=== PATIENT | female | born 1985 | race African-American/Black ===

== ENCOUNTER 2018-06-27 22:49 | Emergency (ER) | payer OTHER ==
[2018-06-27] MEDS ORDERED: KETOROLAC 30 MG/ML INJ ONE (23:24)
--- NOTE | 2018-06-28 00:31 | ER ---
Nurse's Notes [facility] Name: Lilli Whitaker Age: 33 yrs Sex: Female : 1985 Arrival Date: 06/27/2018 Time: 22:53 Bed 25 Private MD: Diagnosis: Radiculopathy, lumbar region;Constipation;Myalgia Presentation: 06/27 23:28 Presenting complaint: Patient states: "I WAS JUST WALKING AROUND THEN SUDDENLY I FELT rv THE PAIN FROM MY LOWER BACK DOWN TO MY RIGHT LEG. IT FELT COLD. NOW THE PAIN STAYS IN THE GROIN AREA.". Transition of care: patient was not received from another setting of care. Onset of symptoms was June 27, 2018 at 19:00. Risk Assessment: Do you want to hurt yourself or someone else? Patient reports no desire to harm self or others. Initial Sepsis Screen: Does the patient meet any 2 criteria? No. Patient's initial sepsis screen is negative. Does the patient have a suspected source of infection? No. Patient's initial sepsis screen is negative. Care prior to arrival: None. 23:28 Method Of Arrival: Ambulatory rv 23:28 Acuity: ALMITA 3 rv BELL SPINNER SOUSAPHONES: 23:39 LMP 06/27/2018 rv Historical: - Allergies: 23:39 Latex, Natural Rubber; rv 23:39 Sulfa (Sulfonamide Antibiotics); rv - Home Meds: 23:39 None [Active]; rv - PMHx: 23:39 ADD/ADHD; rv - PSHx: 23:39 Knee surgery; rv - Immunization history:: Adult Immunizations up to date. - Social history:: Smoking status: Patient/guardian denies using tobacco, never smoked. - Ebola Screening: : Patient negative for fever greater than or equal to 101.5 degrees Fahrenheit, and additional compatible Ebola Virus Disease symptoms Patient denies exposure to infectious person Patient denies travel to an Ebola-affected area in the 21 days before illness onset. Screenin:38 Abuse screen: Denies threats or abuse. Denies injuries from another. Nutritional rv screening: No deficits noted. Tuberculosis screening: No symptoms or risk factors identified. Fall Risk None identified. Assessment: 23:37 General: Appears in no apparent distress. uncomfortable, Behavior is calm, cooperative. rv Pain: Complains of pain in right leg, groin area. Neuro: Level of Consciousness is awake, alert, obeys commands, Oriented to person, place, time, situation. Cardiovascular: Capillary refill < 3 seconds. Respiratory: Airway is patent. GI: No signs and/or symptoms were reported involving the gastrointestinal system. : No signs and/or symptoms were reported regarding the genitourinary system. EENT: No signs and/or symptoms were reported regarding the EENT system. Derm: Skin is intact. Musculoskeletal: No signs and/or symptoms reported regarding the musculoskeletal system. Vital Signs: 23:08 BP 141 / 104; Pulse 82; Resp 17 S; Pulse Ox 100% on R/A; rv 02 00:40 BP 138 / 99; Pulse 79; Resp 18; Pulse Ox 99% on R/A; rv ED Course: 06/27 22:53 Patient arrived in ED. es 23:05 Alee Cortes FNP-C is PHCP. snw 23:05 Dl Blanco MD is Attending Physician. snw 23:29 Triage completed. rv 23:38 Patient has correct armband on for positive identification. Bed in low position. Call rv light in reach. Side rails up X 1. Adult w/ patient. Pulse ox on. NIBP on. 23:40 Patient placed in an exam room, on a stretcher, on pulse oximetry, Patient notified of rv wait time. 23:43 Patient moved to radiology via wheelchair. kw 23:43 X-ray completed. Patient tolerated procedure well. kw 23:43 Lumbar Spine (3 Views) XRAY In Process Unspecified. EDMS 06/28 00:01 Patient moved back from radiology. kw 00:22 US Extremity Venous Unilateral Ltd In Process Unspecified. EDMS 00:40 No provider procedures requiring assistance completed. Patient did not have IV access rv during this emergency room visit. Administered Medications: 06/27 23:17 Drug: TORadol 60 mg Route: IM; Site: right deltoid; rv 06/28 00:41 Follow up: Response: Pain is decreased rv Outcome: 00:30 Discharge ordered by . snw 00:41 Discharged to home ambulatory. rv 00:41 Condition: good 00:41 Discharge instructions given to patient, Instructed on discharge instructions, follow up and referral plans. medication usage, Demonstrated understanding of instructions, follow-up care, medications, Prescriptions given X 3. 00:41 Patient left the ED. rv Signatures: Dispatcher [employer] Alee Topete, COPPER PLATE PRINTER-C COPPER PLATE PRINTER-Csnw Teresa Reno Kimberlee kw Vicente, Ronaldo, RN RN rv
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
--- NOTE | 2018-06-28 07:17 | RAD REPORT ---
EXAM DESCRIPTION: US - Extremity Venous Uni Ltd - 06/28/2018 12:14 am CLINICAL HISTORY: Right leg pain and swelling. Preliminary findings provided at the time of the study. COMPARISON: None. TECHNIQUE: Real-time sonographic evaluation of the right lower extremity deep venous systems was per formed. FINDINGS: Normal compressibility, flow augmentation, phasic flow and spontaneous flow are identified in the right lower extremity common femoral, superficial femoral, popliteal and posterior tibial vei ns. No intraluminal filling defects seen. IMPRESSION: No DVT in the right lower extremity.
--- NOTE | 2018-06-28 08:24 | RAD REPORT ---
EXAM DESCRIPTION: RAD - Lumbar Spine 3 Views - 06/27/2018 11:51 pm CLINICAL HISTORY: Acute onset back pain and radiculopathy COMPARISON: None. FINDINGS: A three-view lumbar spine examination was performed. Lumbar bodies are normal in height an d alignment. No fracture or acute bony process seen. No disc space narrowing. No other significant fi ndings. No pars defects identified. IMPRESSION: Negative Lumbar Spine examination. Concerns for disc herniation, central canal abnormality or occult bone process can be addressed with MR imaging.
== END 2018-06-28 00:41 | disposition home or self-care (01) ==
LOC: ER 22:49
DX: M54.16 Radiculopathy, lumbar region (principal); K59.00 Constipation, unspecified; Z91.040 Latex allergy status; Z91.048 Other nonmedicinal substance allergy status
CPT/HCPCS: 72100; 93971; 96372; 99284

== ENCOUNTER 2019-05-05 08:56 | Day surgery (SDC) | payer OTHER ==
--- OUTSIDE RECORDS SUMMARY | 2019-05-05 09:04 | XMS REPORT ---
:1985 Author Organization [employer] Care Team Providers Name Role Phone Christelle Rossi Provider Role Unavailable Allergies, Adverse Reactions, Alerts Substance Reaction Event Type Sulfa hives Drug Allergy Problems Problem Type Condition Code Onset Dates Condition Status Assessment Non-intractable vomiting with R11.2 Active nausea, unspecified vomiting type Problem Status post fall Z91.81 Active Assessment Prolonged menstrual cycle N92.1 Active Assessment Nexplanon in place Z97.5 Active Assessment Ventral hernia with obstruction and K43.6 Active without gangrene Assessment Pain of upper abdomen R10.10 Active Problem Pain of upper abdomen R10.10 Active Problem Prolonged menstrual cycle N92.1 Active Problem Nexplanon in place Z97.5 Active Problem Seasonal allergies J30.2 Active Problem Acute right-sided low back pain M54.5 Active without sciatica Problem Non-intractable vomiting with R11.2 Active nausea, unspecified vomiting type Problem Ventral hernia with obstruction and K43.6 Active without gangrene Medications Medication Code Code Instructions Start End Status Dosage System Date Date Ondansetron HCl [facility] [id number] 4 MG Orally Feb 28, Active 1 tablet Every 6-8 hours 2019 as needed for nausea/vo miting Results Name Result Date Reference Range Unit Abnormality Flag TEST URINE ----RESULTS Negative [id number] Summary Purpose [employer] Submission
[2019-05-05] MEDS ORDERED: propofoL 200 MG/20 ML VIAL IV ONE (09:07)
[2019-05-05] MEDS ORDERED: FENTANYL CITR 100 MCG/2 ML ONE (09:08)
[2019-05-05] MEDS ORDERED: LIDOCAINE 2% MPF 5 ML VIAL ONE (09:08)
[2019-05-05] MEDS ORDERED: ROCURONIUM 50 MG/5 ML VIAL IV ONE (09:08)
[2019-05-05] MEDS ORDERED: MIDAZOLAM HCL 2 MG/2 ML INJ ONE (09:08)
[2019-05-05 09:10] LABS: Absolute Lymphocytes (CBC) 1.3 K/uL (0.7-4.9); Basophils % 0.9 % (0-1.3); Hematocrit 39.2 % (36.0-45.0); MPV 9.7 fL (7.6-11.3); RBC Red Blood Cell Count 5.84 M/uL (3.86-4.86)
[2019-05-05] MEDS ORDERED: Ringers Lactate 1,000 ML IV ONE (09:22)
[2019-05-05] MEDS ORDERED: CEFAZOLIN/SWI 1gm 1 GM/10 ML SYR ONE (09:22)
[2019-05-05 09:37] LABS: Blood Morphology Comment NOT SEEN (NOT SEEN); Platelet Estimate ADEQ
[2019-05-05] MEDS ORDERED: NEOSTIGMINE 1 MG/ML -10 ML VIAL ONE (10:47)
[2019-05-05] MEDS ORDERED: GLYCOPYRROLATE 0.2 MG/ML SYR ONE ×3 (10:47→10:50)
[2019-05-05] MEDS ORDERED: HYDROMORPHONE HCL 1 MG/ML INJ ONE (11:11)
[2019-05-05] MEDS ORDERED: ONDANSETRON 4 MG/2 ML VIAL ONE (11:11)
[2019-05-05] MEDS ORDERED: HYDROCODONE/APAP 7.5/325 MG TAB ONE (12:24)
[2019-05-05 13:20] VITALS: BP 105/73; TEMP 97.5; O2SAT 98
--- NOTE | 2019-05-05 22:08 | OP ---
Date of Procedure: 05/05/2019 Surgeon: Jaspreet Paredes MD Preoperative Diagnosis: Ventral hernia. Postoperative Diagnosis: Ventral hernia with adhesions. Procedure Performed: Laparoscopic repair of ventral hernia and lysis of adhesions. Estimated Blood Loss: Minimal. Specimen: Hernia sac and contents. Findings: As above. Anesthesia: General. Complications: None. Disposition: Patient tolerated the procedure in stable condition, taken to Recovery in good general condition. Procedure In Detail: Patient was brought to the OR and placed in supine position. General anesthesi a was begun. The patient was prepped and draped in usual sterile fashion. Marcaine 0.5% was infiltr ated locally. A 15-blade was used to make a 1 cm left upper quadrant incision. Subcutaneous tissue divided. Fascia was identified and divided. A #1 Vicryl stay suture was placed. Peritoneal cavity was entered with sharp and blunt dissection. 12 mm trocar was placed into the peritoneal cavity unde r direct vision. Pneumoperitoneum was established. Then, a 5 mm trocar was placed in the left lower quadrant. Laparoscopy revealed some adhesions in the left lower quadrant and right upper quadrant _ sharp dissection, bleeding controlled with cautery. The patient had a ventral hernia, smal l in nature. 3 cm incision was made over the hernia, subcutaneous tissue divided. Hernia sac and co ntents identified, excised, sent to Pathology as specimen. Approximately, 1.5 to 2 cm defect remaine d in the fascia. Small Ventralex mesh placed and secured with a [id number] suture of #1 PDS and closed the fascial defect as well as to secure the mesh to the peritoneal surface. Then, laparoscop y reperformed and tacker was used to tack the mesh to the peritoneal surface for complete coverage ar ound the hernia defect. No evidence of bleeding or bowel injury appreciated. Subsequently, all troc ars were removed under direct vision. Stay sutures were tied to each other to reapproximate the fasc ial defect. Subcutaneous wounds were irrigated. Bleeding controlled with cautery. A 3-0 chromic us ed to approximate the subcutaneous tissue and close the skin. Sterile dressing was applied. The pat ient was awakened and taken to Recovery in good general condition. Discharge Note: The patient will go to Day Surgery, then home when stable. Disposition: Home. Condition: Stable. Discharge Instructions: Resume home medications and diet. Activity as tolerated. No heavy lifting. Remove outer dressing in 2 days. Shower. Keep the Steri-Strips on at all times. Abdominal binder as ordered. Tylenol No. 3 one tablet p.o. q.4 p.r.n. pain. Follow up in my office in 1 week. Call for appointment. MITRA/SHERYL Voice ID: [id number] Report ID: [id number]
== END 2019-05-05 12:20 | disposition home or self-care (01) ==
LOC: OR 08:56
PROVIDERS: ATTEND Surgery
PROC: 0WUF4JZ Supplement Abdominal Wall with Synthetic Substitute, Percutaneous Endoscopic Approach (ICD-10-PCS; principal; 2019-05-05 09:30)
DX: K43.9 Ventral hernia without obstruction or gangrene (principal); K66.0 Peritoneal adhesions (postprocedural) (postinfection); Z88.2 Allergy status to sulfonamides
CPT/HCPCS: 85025; 36415; 81025; 88302; 49652; J2704; J2710; J2250; J3010; J1170; J0690; J7120; J2405

== ENCOUNTER → 2024-04-12 | Day surgery (SDC) | payer OTHER, SELFPAY ==
--- NOTE | 2024-04-12 11:33 | RAD REPORT ---
PAROTID NODULE FNA PREPROCEDURE DIAGNOSIS: Right parotid nodule. D48.9 PROCEDURE: Right parotid nodule FNA. SPECIMEN: 5 - 25-gauge FNA specimens of the right parotid nodule. TECHNIQUE: Prior to the procedure , the risks and benefits of a thyroid FNA were explained with the patient vannessa davis consented fully to the procedure. Real-time ultrasound was used to identify the lesion of interest right parotid gland. The neck was th en prepped and draped in the usual sterile fashion. Lidocaine was used to anesthetize the skin and soft tissues down towards the parotid nodule. 5 separa te 25-gauge needles were then placed using ultrasound guidance into the nodule and specimen was obtained within the needle using a to and fro motion. These needles were placed in solution provided by pathology. The patient tolerated the procedure well without immediate post procedure complication. IMPRESSION: Technically successful ultrasound-guided FNA procedure right parotid nodule.
== END ==
LOC: FNA 08:00
PROVIDERS: ATTEND Otolaryngology Facial Plastic Surgery
PROC: 0JB43ZX Excision of Right Neck Subcutaneous Tissue and Fascia, Percutaneous Approach, Diagnostic (ICD-10-PCS; principal; 2024-04-12)
DX: D11.0 Benign neoplasm of parotid gland (principal)
CPT/HCPCS: 88162